=== PATIENT | male | born 1965 | race Caucasian/White ===

== ENCOUNTER 2017-05-27 23:18 | Emergency (ER) | payer SELFPAY ==
[~2017-05-27] VITALS: Ht 162.6 cm; Wt 62.0 kg
[~2017-05-27 23:18] MED LIST: CIPRO
[2017-05-27 23:21] VITALS: Ht 162.6 cm; Wt 62.0 kg
--- NOTE | 2017-05-28 01:21 | RADRPT ---
PROCEDURE: XR Right Foot. CLINICAL INDICATION: . Possible foreign body.. TECHNIQUE: AP, lateral and oblique views of the right foot was obtained. The images were reviewed on a PACS workstation. COMPARISON: None. FINDINGS: There are no fractures. Joint relationships are maintained. Bone mineralization is within normal l imits. Soft tissues are unremarkable. There is no radiopaque foreign body. IMPRESSION: No radiopaque foreign body. RPTAT: HMVK .Dakota Murillo MD, MD Date Time Electronically viewed and signed by .Dakota Murillo MD, on 05/28/2017 01:20 .K/
[2017-05-28] MEDS ORDERED: DIPHTH/TET/ACEL PERTUSS (ADULT) 0.5 ML VIAL IM* ONE (01:30)
[2017-05-28] MEDS ORDERED: LIDOCAINE 2%/EPI MPF (SDV) 20 ML VIAL INJ ONE (01:30)
[2017-05-28] MEDS ORDERED: SULF1TAB31 PO (01:32)
[2017-05-28] MEDS ORDERED: CIPR500T4 PO (01:32)
[2017-05-28] MEDS ORDERED: IBUP-1542 PO (01:33)
--- NOTE | 2017-05-28 01:39 | ERD ---
ER Documentation Chief Complaint Date/Time DATE: 05/28/17 TIME: 01:33 Chief Complaint c/o lac to right foot. HPI Patient is a 52-year-old male with a past medical history of diabetes who presents to the ED for concerns of a laceration to the bottom of his right foot. Patient states laceration occurred approximately 3 hours ago. Patient states that he was cleaning up broken glass from the form when he accidentally stepped on the glass. Patient states that he did remove the piece of glass from the bottom of his foot. Patient denies any significant bleeding. Patient does not recall his last tetanus vaccination. Patient denies any difficulty ambulating. Patient denies any fevers, chills, nausea, vomiting, LOC. ROS All systems reviewed and are negative except as per history of present illness. Medications Home Meds Active Scripts Ibuprofen* (Motrin*) 600 Mg Tab, 600 MG PO Q6, #30 TAB Prov:LILIAN BYERS PA-C 05/28/17 Sulfamethoxazole/Trimethoprim* (Bactrim Ds* Tablet) 1 Each Tablet, 1 TAB PO BID , #20 TAB Prov:LILIAN BYERS PA-C 05/28/17 Ciprofloxacin Hcl* (Ciprofloxacin Hcl*) 500 Mg Tablet, 500 MG PO BID for 10 Days , TAB Prov:LILIAN BYERS PA-C 05/28/17 Reported Medications [Cipro] No Conflict Check 04/03/11 Allergies Allergies: Coded Allergies: Penicillins (Verified Allergy, Mild, 04/03/11) PMhx/Soc Medical and Surgical Hx: pt denies Medical Hx, pt denies Surgical Hx History of Surgery: No Anesthesia Reaction: No Hx Neurological Disorder: No Hx Respiratory Disorders: No Hx Cardiac Disorders: No Hx Psychiatric Problems: No Hx Miscellaneous Medical Probl: Yes (Diabetes) Hx Alcohol Use: No Hx Substance Use: No Hx Tobacco Use: No Smoking Status: Never smoker FmHx Family History: diabetes Physical Exam Vitals Vital Signs Date Time Temp Pulse Resp B/P Pulse Ox O2 Delivery O2 Flow Rate FiO2 05/28/17 01:54 98.5 18 155/88 100 Room Air 05/27/17 23:21 98.6 77 18 177/98 100 Physical Exam GENERAL: Well-developed, well-nourished male. Appears in no acute distress. HEAD: Normocephalic, atraumatic. EYES: Pupils are equally reactive bilaterally. EOMs grossly intact. No conjunctival erythema. ENT: Moist mucous membranes. No uvula deviation. No kissing tonsils. NECK: Supple. No meningismus. Normal range of motion of the neck. LUNG: Clear to auscultation bilaterally. No rhonchi, wheezing, rales or coarse breath sounds. HEART: Regular rate and rhythm. No murmurs, rubs or gallops. EXTREMITIES: Equal pulses bilaterally. No peripheral clubbing, cyanosis or edema. No unilateral leg swelling. Normal range of motion of the ankle and toes bilaterally. NEUROLOGIC: Alert and oriented. Moving all four extremities without any difficulty. Normal speech. Steady gait. SKIN: Normal color. Warm and dry. RIGHT FOOT: Dirt present. .5 cm puncture wound noted to sole of right foot. No active bleeding. No surrounding erythema or swelling. Normal range of all toes and ankle noted. Results 24 hrs Current Medications Medications (Trade) Dose Ordered Sig/Eneida Route PRN Reason Start Time Stop Time Status Last Admin Dose Admin Diphtheria/ Tetanus/Acell Pertussis (Adacel) 0.5 ml ONCE ONCE IM* 05/28/17 01:30 05/28/17 01:31 DC 05/28/17 01:30 Lidocaine/ Epinephrine (Xylocaine 2%/ Epi Mpf(Sdv)) 20 ml ONCE ONCE INJ 05/28/17 01:30 05/28/17 01:45 DC Procedures/MDM ED COURSE: The patient was stable throughout ED course. I kept the patient and/or family informed of laboratory and diagnostic imaging results throughout the ED course. DIAGNOSTIC IMAGING: Read by radiologist. DIAGNOSTIC IMAGING REPORT Patient: JESUS FISHER : 1965 Age: 52 Sex: M MR #: [id number] DOS: 05/28/17 0024 Ordering MD: LILIAN BYERS PA-C Location: [facility] Room/Bed: PROCEDURE: XR Right Foot. CLINICAL INDICATION: . Possible foreign body.. TECHNIQUE: AP, lateral and oblique views of the right foot was obtained. The images were reviewed on a PACS workstation. COMPARISON: None. FINDINGS: There are no fractures. Joint relationships are maintained. Bone mineralization is within normal limits. Soft tissues are unremarkable. There is no radiopaque foreign body. IMPRESSION: No radiopaque foreign body. RPTAT: HMVK .Dakota Murillo MD, Date Time Electronically viewed and signed by .Dakota Murillo MD, MD on 05/28/2017 01:20 .K/ CC: LILIAN BYERS PA-C PROCEDURES: Laceration Repair: The patient was verbally consented prior to procedure. Patient was explained the risks, benefits and alternatives to this procedure. Length: .5 cm to right sole Irrigation: Thorough irrigation was performed with normal saline and adequate pressure. Inspection: The wound was thoroughly explored and no foreign bodies, deep tissue , tendon or structural injuries were noted. Given that wound was a dirty wound, no sutures or or Dermabond was placed to the bottom of the patient's foot. The wound was dressed with bacitracin and sterile gauze. The patient was neurovascularly intact post-procedure. Post- procedural wound care was discussed with the patient. MEDICATIONS GIVEN: Tdap IM Patient tolerated medication well with no adverse reactions. MEDICAL DECISION MAKING: This is a 52-year-old male with a history of diabetes who presents with puncture wound to the bottom of his right foot after stepping on glass. Vital signs were reviewed. Patient was afebrile. Puncture wound was noted to the bottom of the patient's right foot. No active bleeding noted. Patient had normal range of motion of his ankle and toes. The wound was cleansed thoroughly and irrigated using normal saline by myself as well as the distribution technician. Xray imaging of the foot was unremarkable for any radiopaque foreign bodies. Discussed the patient's case with my supervising physician Dr. Barreto. At this time, there is no indication for wound closure given that patient did have a dirty wound. Patient will be discharged home with a prescription for ciprofloxacin and Bactrim. Patient will be covered for Pseudomonas infection. Patient was given tetanus vaccination here in the ED today. Tetanus is up-to- date now. At this time, the patient's presentation is most consistent with puncture wound. Low suspicion for tendon injury, nerve injury, fracture, dislocation, retained foreign body. Patient was advised to return in 2 days for wound recheck. Patient advised to return sooner for any new or worsening symptoms. PRESCRIPTIONS: Ciprofloxacin, Bactrim, ibuprofen DISCHARGE: At this time, the patient is stable for discharge and outpatient management. Post-procedural wound care was discussed with the patient. Patient given a copy of all imaging studies. The patient has been advised to return to the ER in 2 days for a wound check. I have instructed the patient to promptly return to the ER for any new or worsening symptoms including increasing pain, fever, warmth, redness or swelling. The patient and/or family expressed understanding of and agreement with this plan. All questions were answered. Home care instructions were provided. Patient's blood pressure was elevated (>120/80) but appears stable without evidence of hypertensive emergency, hypertensive urgency or end-organ failure. I had discussion with the patient about the risks of hypertension. I have advised the patient to follow up with his/her primary care physician for outpatient monitoring and treatment for hypertension in 2-3 days. I have instructed the patient to return to the ER for any new or worsening symptoms including chest pain, shortness of breath, headache, blurred vision, confusion, nausea, vomiting or LOC. Departure Diagnosis: Primary Impression: Puncture wound Additional Impression: Laceration Condition: Stable Patient Instructions: Puncture Wound, Foot Referrals: [facility] YOU HAVE RECEIVED A MEDICAL SCREENING EXAM AND THE RESULTS INDICATE THAT YOU DO NOT HAVE A CONDITION THAT REQUIRES URGENT TREATMENT IN THE EMERGENCY DEPARTMENT. FURTHER EVALUATION AND TREATMENT OF YOUR CONDITION CAN WAIT UNTIL YOU ARE SEEN IN YOUR DOCTORS OFFICE WITHIN THE NEXT 1-2 DAYS. IT IS YOUR RESPONSIBILITY TO MAKE AN APPOINTMENT FOR FOLOW-UP CARE. IF YOU HAVE A PRIMARY DOCTOR --you should call your primary doctor and schedule an appointment IF YOU DO NOT HAVE A PRIMARY DOCTOR YOU CAN CALL OUR PHYSICIAN REFERRAL HOTLINE AT IF YOU CAN NOT AFFORD TO SEE A PHYSICIAN YOU CAN CHOSE FROM THE FOLLOWING [facility] [address] [facility] [address] [facility] [address] [facility] [address] [facility] [address] [facility]. [facility] [address] [facility]. [facility] YOU HAVE RECEIVED A MEDICAL SCREENING EXAM AND THE RESULTS INDICATE THAT YOU DO NOT HAVE A CONDITION THAT REQUIRES URGENT TREATMENT IN THE EMERGENCY DEPARTMENT. FURTHER EVALUATION AND TREATMENT OF YOUR CONDITION CAN WAIT UNTIL YOU ARE SEEN IN YOUR DOCTORS OFFICE WITHIN THE NEXT 1-2 DAYS. IT IS YOUR RESPONSIBILITY TO MAKE AN APPOINTMENT FOR FOLOW-UP CARE. IF YOU HAVE A PRIMARY DOCTOR --you should call your primary doctor and schedule and appointment IF YOU DO NOT HAVE A PRIMARY DOCTOR YOU CAN CALL OUR PHYSICIAN REFERRAL HOTLINE AT . IF YOU CAN NOT AFFORD TO SEE A PHYSICIAN YOU CAN CHOSE FROM THE FOLLOWING [facility] INSTITUTIONS: [facility] [address] [place] [address] [facility] [address] [place], [place] [id number] [place] [address] [address] [place] [address] Additional Instructions: Regrese a hospital emergencia dentro de [facility] para un examen de seguimiento.Regrese antes si nguyen condicin se empeora. Maribeth todo los antibioticos. LILIAN BYERS PA-C May 28, 2017 01:39
[2017-05-28 01:54] VITALS: BP 155/88; RESP 18; TEMP 98.5
== END 2017-05-28 01:55 | disposition home or self-care (01) ==
LOC: FTE 23:18
DX: S91.331A Puncture wound without foreign body, right foot, initial encounter (principal); E11.9 Type 2 diabetes mellitus without complications; W25.XXXA Contact with sharp glass, initial encounter; Y92.9 Unspecified place or not applicable; Z23 Encounter for immunization
CPT/HCPCS: 73630; 90471; 90715; 99284

== ENCOUNTER 2017-05-29 21:59 | Emergency (ER) | payer MEDICAID ==
[~2017-05-29] VITALS: Ht 167.6 cm; Wt 64.0 kg
[~2017-05-29 21:59] MED LIST changes: +CIPR500T4 PO; +IBUP-1542 PO; +SULF1TAB31 PO
[2017-05-29 22:02] VITALS: Ht 167.6 cm; Wt 64.0 kg
--- NOTE | 2017-05-29 23:52 | ERD ---
ER Documentation Chief Complaint Date/Time DATE: 05/29/17 TIME: 23:51 Chief Complaint Pt reports here for wound recheck on R foot HPI This is a 52-year-old male presents to the ER for wound check of his right foot. Patient got a puncture wound 2 days ago and was told to return today. Patient has a past medical history of diabetes, he has been taking his medications as instructed. He denies any foot pain any foot redness or discharge. He denies any numbness or tingling of his foot. ROS 12 point review of systems was done, all negative except per HPI. Medications Home Meds Active Scripts Ibuprofen* (Motrin*) 600 Mg Tab, 600 MG PO Q6, #30 TAB Prov:LILIAN BYERS PA-C 05/28/17 Sulfamethoxazole/Trimethoprim* (Bactrim Ds* Tablet) 1 Each Tablet, 1 TAB PO BID , #20 TAB Prov:LILIAN BYERS PA-C 05/28/17 Ciprofloxacin Hcl* (Ciprofloxacin Hcl*) 500 Mg Tablet, 500 MG PO BID for 10 Days , TAB Prov:LILIAN BYERS PA-C 05/28/17 Reported Medications [Cipro] No Conflict Check 04/03/11 Allergies Allergies: Coded Allergies: Penicillins (Verified Allergy, Mild, 04/03/11) PMhx/Soc Medical and Surgical Hx: pt denies Surgical Hx History of Surgery: No Anesthesia Reaction: No Hx Neurological Disorder: No Hx Respiratory Disorders: No Hx Cardiac Disorders: No Hx Psychiatric Problems: No Hx Miscellaneous Medical Probl: Yes (Diabetes) Hx Alcohol Use: No Hx Substance Use: No Hx Tobacco Use: No Smoking Status: Never smoker Physical Exam Vitals Vital Signs Date Time Temp Pulse Resp B/P Pulse Ox O2 Delivery O2 Flow Rate FiO2 05/29/17 22:02 98.3 84 18 132/83 98 Physical Exam GENERAL: The patient is well developed and appropriate for usual state of health , in no apparent distress. HEENT: Atraumatic. CHEST: Clear to auscultation bilaterally. There are no rales, wheezes or rhonchi. HEART: Regular rate and rhythm. No murmurs, clicks, rubs or gallops. EXTREMITIES: There is a healing puncture wound to the plantar right foot. There is no surrounding erythema, warmth or discharge. It is not tender to palpation. Patient has full range of motion of his foot and is neurovascularly intact. Procedures/MDM Wound shows no evidence of infection, foreign body, neurologic injury, vascular injury, open joint or tendon laceration. Patient appropriate for outpatient follow up. Departure Diagnosis: Primary Impression: Encounter for wound re-check Condition: Stable Patient Instructions: Wound Care Additional Instructions: Llame al doctor CHARITY y quirino crescencio SHAHID PARA DENTRO DE 1-2 GODINEZ.Dgale a la secretaria que nosotros le instruimos hacer esta shahid.Avise o llame si nguyen condicin se empeora antes de la shahid. Regresa aqui si peor o no mejor. TIESHA LAGOS May 29, 2017 23:52
== END 2017-05-29 23:46 | disposition home or self-care (01) ==
LOC: FTE 21:59
DX: Z48.01 Encounter for change or removal of surgical wound dressing (principal); E11.9 Type 2 diabetes mellitus without complications
CPT/HCPCS: 99281

== ENCOUNTER 2017-06-04 22:20 | Emergency (ER) | payer MEDICAID ==
[~2017-06-04] VITALS: Ht 167.6 cm; Wt 64.5 kg
[2017-06-04 22:49] VITALS: Ht 167.6 cm; Wt 64.5 kg
[2017-06-05] MEDS ORDERED: MUPI22OI2 TOP (01:25)
[2017-06-05] MEDS ORDERED: DOCU-144 PO (01:25)
--- NOTE | 2017-06-05 01:39 | ERD ---
ER Documentation Chief Complaint Date/Time DATE: 06/05/17 TIME: 01:27 Chief Complaint constipation/rectal bleed x 3 days HPI 52-year-old male with a history of diabetes presents to the emergency for intermittent abdominal cramping and bloating for 3 days. Patient also notes constipation which has caused him to strain with defecation. Patient of external hemorrhoids and has noted some bright red blood with defecation. Patient states he has experienced similar symptoms in the past. Patient was seen and evaluated at this emergency department 2 weeks ago for a puncture wound to the bottom of the foot. Patient was instructed to begin antibiotic therapy with Bactrim and Cipro to cover for Pseudomonas infection. Patient states that he has been compliant with the medication but has gradually developed his abdominal symptoms beginning the antibiotics. Patient denies blood within his stool, nausea, vomiting, diarrhea, fever, chills, weakness or dizziness. He states he checks his sugars regularly and his glucose has been well controlled. ROS All systems reviewed and are negative except as per history of present illness. Medications Home Meds Active Scripts Mupirocin* (Bactroban*) 2% -22 Gram Oint...g., 1 APPLIC TOP BID for 7 Days, EA Prov:LUIS MANUEL KUMAR PA-C 06/05/17 Docusate Sodium* (Colace*) 100 Mg Capsule, 100 MG PO TID, #30 CAP Prov:LUIS MANUEL KUMAR PA-C 06/05/17 Ibuprofen* (Motrin*) 600 Mg Tab, 600 MG PO Q6, #30 TAB Prov:LILIAN BYERS PA-C 05/28/17 Sulfamethoxazole/Trimethoprim* (Bactrim Ds* Tablet) 1 Each Tablet, 1 TAB PO BID , #20 TAB Prov:LILIAN BYERS PA-C 05/28/17 Ciprofloxacin Hcl* (Ciprofloxacin Hcl*) 500 Mg Tablet, 500 MG PO BID for 10 Days , TAB Prov:LILIAN BYERS PA-C 05/28/17 Reported Medications [Cipro] No Conflict Check 04/03/11 Allergies Allergies: Coded Allergies: Penicillins (Verified Allergy, Mild, 04/03/11) PMhx/Soc Medical and Surgical Hx: pt denies Medical Hx, pt denies Surgical Hx History of Surgery: No Anesthesia Reaction: No Hx Neurological Disorder: No Hx Respiratory Disorders: No Hx Cardiac Disorders: No Hx Psychiatric Problems: No Hx Miscellaneous Medical Probl: Yes (Diabetes) Hx Alcohol Use: No Hx Substance Use: No Hx Tobacco Use: No Smoking Status: Never smoker Physical Exam Vitals Vital Signs Date Time Temp Pulse Resp B/P Pulse Ox O2 Delivery O2 Flow Rate FiO2 06/05/17 01:52 98.6 68 20 100 Room Air 06/04/17 22:49 98.1 67 20 135/80 98 Physical Exam Const: Well-developed, well-nourished, no acute distress Head: Atraumatic Eyes: Normal Conjunctiva ENT: Normal External Ears, Nose and Mouth. Neck: Full range of motion..~ No meningismus. Resp: Clear to auscultation bilaterally Cardio: Regular rate and rhythm, no murmurs Abd: Soft, non tender, non distended. Normal bowel sounds Skin: No petechiae or rashes Back: No midline or flank tenderness Ext: No cyanosis, or edema Neur: Awake and alert : .5cm Soft external hemorrhoid observed. No active bleeding from rectum. Psych: Normal Mood and Affect Procedures/MDM This is a 52-year-old male with a history of diabetes who presents the emergency department for complaints of abdominal cramping, bloating, constipation, straining with defecation and bleeding hemorrhoids which have gradually worsened since beginning antibiotics for a puncture wound 2 weeks ago. Patient states been compliant with antibiotics thus far and overall his skin injury has improved significantly. He admits to frequent blood sugar checks and states his glucose levels have been well controlled. Patient denies blood in his stool, hematochezia, coffee-ground emesis, dizziness, fever, nausea , vomiting, or diarrhea. Patient nontender upon exam of his abdomen and flanks. Patient appears to be well-nourished and nontoxic. At this time low suspicion for GI bleed, ketoacidosis, hyperglycemia, acute appendicitis, cholecystitis, small bowel obstruction, diverticulitis, or other surgical abdomen. At this time I do not believe laboratory or imaging studies are indicated. I had a discussion with the patient regarding return precautions and instructed the patient to return immediately if symptoms do not improve. Patient instructed to stop oral antibiotics and begin topical antibiotic therapy. Continue Anusol and begin Colace. Patient expressed understanding of and agreement with plan. Based on patient's history of present illness and physical examination the decision was made to discharge. No evidence of life-threatening conditions at this time. Patient resting in no distress and clear for follow-up by primary care in 1-2 days. Departure Diagnosis: Primary Impression: Bleeding hemorrhoid Additional Impressions: Abdominal cramping Abdominal bloating Constipation Constipation type: unspecified constipation type Qualified Code: K59.00 - Constipation, unspecified constipation type Condition: Good Patient Instructions: Treating Hemorrhoids: Self-Care, Constipation (Adult) Additional Instructions: Call your primary care doctor TOMORROW for an appointment during the next 1-2 days.See the doctor sooner or return here if your condition worsens before your appointment time. LUIS MANUEL KUMAR PA-C Jun 05, 2017 01:38
[2017-06-05 01:52] VITALS: PULSE 68; RESP 20; TEMP 98.6
== END 2017-06-05 01:50 | disposition home or self-care (01) ==
LOC: FTE 22:20
DX: K64.5 Perianal venous thrombosis (principal); R10.2 Pelvic and perineal pain; E11.9 Type 2 diabetes mellitus without complications
CPT/HCPCS: 99283

== ENCOUNTER 2017-12-11 19:04 | Emergency (ER) | END 2017-12-11 22:35 | disposition home or self-care (01) ==

== ENCOUNTER 2018-01-01 05:05 | Emergency (ER) | END 2018-01-01 08:12 | disposition home or self-care (01) ==